=== PATIENT | female | born 1980 | race Caucasian/White ===

== ENCOUNTER 2017-08-13 11:04 | Emergency (ER) | payer BC ==
--- NOTE | 2017-08-13 11:18 | EDM.PDOC ---
ED HPI GENERAL MEDICAL PROBLEM - General Stated Complaint: LEFT SIDE OF FACE IS NUMB Time Seen by Provider: 08/13/17 11:18 Source of Information: Reports: Patient History Limitations: Reports: No Limitations - History of Present Illness INITIAL COMMENTS - FREE TEXT/NARRATIVE: Patient is a 37-year-old female who presents to the ED complaining of left- sided facial tingling. She states this started a few days ago with some faint numbness noted to the left side of her lips. Today approximately 1 hour ago symptoms progressed to her face. She has a slight headache located left side rated 4 out of 10 throbbing in nature. She does have a history of migraines in the past but is not medicated. She is concerned that she may be having a stroke since there is a strong family history of this. In addition she is feeling very anxious which she believes may be exacerbating the symptoms. She has had a history of hypertension and present to the ED with significant elevation in her blood pressure noted. She was on metoprolol 25 mg one tab every day up until 2 years ago. Over the past few years she states her stress level has been very high with work. She does not go to the doctor on regular basis. She is currently taking no medications. Surgical history noncontributory. Patient does smoke 2 cigarettes a day. Alcohol uses rarely. Denies recreational drug use. She states she is not she's not sexually active. Headache Pain Score (Numeric/FACES): 3 - Related Data Allergies Allergy/AdvReac Type Severity Reaction Status Date / Time Iodinated Contrast- Oral and Allergy Swelling Verified 08/13/17 11:12 IV Dye Home Meds: Home Meds Metoprolol Succinate [Toprol XL] 25 mg PO DAILY #30 tab.er 08/13/17 [Rx] Ranitidine [Zantac] 1 tab PO ASDIRECTED PRN 08/13/17 [History] ED ROS GENERAL - Review of Systems Review Of Systems: See Below Constitutional: Reports: Malaise, Decreased Appetite. Denies: Fever, Chills HEENT: Reports: No Symptoms Respiratory: Reports: No Symptoms Cardiovascular: Reports: No Symptoms GI/Abdominal: Reports: No Symptoms : Reports: No Symptoms Musculoskeletal: Reports: No Symptoms Skin: Reports: No Symptoms Neurological: Reports: Headache, Tingling (to left side of face where headache is located. ). Denies: Numbness Psychiatric: Reports: No Symptoms ED EXAM, NEURO - Physical Exam Exam: See Below Exam Limited By: No Limitations General Appearance: Alert, WD/WN, Anxious Eye Exam: Bilateral Eye: EOMI, Normal Inspection, PERRL Ears: Hearing Grossly Normal Nose: Normal Inspection Throat/Mouth: Normal Inspection, Normal Oropharynx, Normal Voice, No Airway Compromise Head Exam: Atraumatic, Normocephalic Neck: Normal Inspection, Supple, Non-Tender, Lymphadenopathy (L). No: Carotid Bruit Respiratory/Chest: No Respiratory Distress, Lungs Clear, Normal Breath Sounds, Chest Non-Tender Cardiovascular: Normal Peripheral Pulses, Regular Rate, Rhythm, No Murmur GI/Abdominal: Normal Bowel Sounds, Soft, Non-Tender, No Organomegaly, No Distention Neurological: Alert, Normal Mood/Affect, Normal Dorsiflexion, CN II-XII Intact, Normal Plantar Flexion, No Motor/Sensory Deficits, Oriented x 3, Other ( Cerebellar function intact: Finger-nose, rapid alternating movements. No weakness discrepancy is to the upper and lower extremities. No sensory deficits noted on examination. No slurred speech. No facial droop.) Back Exam: Normal Inspection Extremities: Normal Inspection Psychiatric: Normal Affect, Normal Mood Skin Exam: Warm, Dry, Intact, Normal Color, No Rash Course - Vital Signs Last Recorded V/S: Last Vital Signs Temp 97.2 F 08/13/17 11:13 Pulse 78 08/13/17 11:58 Resp 18 08/13/17 11:13 BP 149/120 H 08/13/17 11:58 Pulse Ox 100 08/13/17 11:13 - Orders/Labs/Meds Orders: Active Orders 24 hr Category Date Time Status EKG Documentation Completion [RC] STAT Care 08/13/17 11:35 Active Peripheral IV Care [RC] . DIRECTED Care 08/13/17 11:35 Active Peripheral IV Insertion Adult [OM.PC] Stat Oth 08/13/17 11:35 Ordered Peripheral IV Insertion Adult [OM.PC] Stat Oth 08/13/17 11:36 Ordered Labs: Laboratory Tests 08/13/17 08/13/17 08/13/17 Range/Units 11:45 11:45 11:45 WBC 7.08 (3.98-10.04) K/mm3 RBC 4.91 (3.98-5.22) M/mm3 Hgb 11.6 (11.2-15.7) gm/L Hct 36.5 (34.1-44.9) % MCV 74.3 L (79.4-94.8) fl MCH 23.6 L (25.6-32.2) pg MCHC 31.8 L (32.2-35.5) g/dl RDW Std Deviation 46.0 (36.4-46.3) fL Plt Count 426 H (182-369) K/mm3 MPV 9.2 L (9.4-12.3) fl Neut % (Auto) 60.1 (34.0-71.1) % Lymph % (Auto) 23.7 (19.3-51.7) % [place] % (Auto) 12.9 H (4.7-12.5) % Eos % (Auto) 2.3 (0.7-5.8) Baso % (Auto) 0.6 (0.1-1.2) % Neut # (Auto) 4.26 (1.56-6.13) K/mm3 Lymph # (Auto) 1.68 (1.18-3.74) K/mm3 [place] # (Auto) 0.91 H (0.24-0.36) K/mm3 Eos # (Auto) 0.16 (0.04-0.36) K/mm3 Baso # (Auto) 0.04 (0.01-0.08) K/mm3 Manual Slide Review Abnormal smear PT 10.0 (8.0-13.0) SECONDS INR 0.92 APTT 27 (22-36) SECONDS Sodium 138 (136-145) mEq/L Potassium 4.3 (3.5-5.1) mEq/L Chloride 105 (98-107) mEq/L Carbon Dioxide 24 (21-32) mEq/L Anion Gap 13.3 (5-15) BUN 11 (7-18) mg/dL Creatinine 0.8 (0.55-1.02) mg/dL Est Cr Clr Drug Dosing 86.64 mL/min Estimated GFR (MDRD) > 60 (>60) mL/min BUN/Creatinine Ratio 13.8 L (14-18) Glucose 105 (74-106) mg/dL Calcium 9.1 (8.5-10.1) mg/dL Total Bilirubin 0.3 (0.2-1.0) mg/dL AST 24 (15-37) U/L ALT 53 (14-59) U/L Alkaline Phosphatase 54 (46-116) U/L C-Reactive Protein < 0.2 (<1.0) mg/dL Total Protein 7.8 (6.4-8.2) g/dl Albumin 3.7 (3.4-5.0) g/dl Globulin 4.1 gm/dL Albumin/Globulin Ratio 0.9 L (1-2) TSH 3rd Generation 7.608 H (0.358-3.74) uIU/mL HCG, Qual (NEGATIVE) Urine Color (Yellow) Urine Appearance (Clear) Urine pH (5.0-8.0) Ur Specific [place] (1.005-1.030) Urine Protein (Negative) Urine Glucose (UA) (Negative) Urine Ketones (Negative) Urine Occult Blood (Negative) Urine Nitrite (Negative) Urine Bilirubin (Negative) Urine Urobilinogen (0.2-1.0) Ur Leukocyte Esterase (Negative) Urine RBC (0-5) /hpf Urine WBC (0-5) /hpf Ur Epithelial Cells (0-5) /hpf Urine Bacteria (FEW) /hpf Urine Mucus (FEW) /hpf 08/13/17 08/13/17 Range/Units 11:45 11:45 WBC (3.98-10.04) K/mm3 RBC (3.98-5.22) M/mm3 Hgb (11.2-15.7) gm/L Hct (34.1-44.9) % MCV (79.4-94.8) fl MCH (25.6-32.2) pg MCHC (32.2-35.5) g/dl RDW Std Deviation (36.4-46.3) fL Plt Count (182-369) K/mm3 MPV (9.4-12.3) fl Neut % (Auto) (34.0-71.1) % Lymph % (Auto) (19.3-51.7) % [place] % (Auto) (4.7-12.5) % Eos % (Auto) (0.7-5.8) Baso % (Auto) (0.1-1.2) % Neut # (Auto) (1.56-6.13) K/mm3 Lymph # (Auto) (1.18-3.74) K/mm3 [place] # (Auto) (0.24-0.36) K/mm3 Eos # (Auto) (0.04-0.36) K/mm3 Baso # (Auto) (0.01-0.08) K/mm3 Manual Slide Review PT (8.0-13.0) SECONDS INR APTT (22-36) SECONDS Sodium (136-145) mEq/L Potassium (3.5-5.1) mEq/L Chloride (98-107) mEq/L Carbon Dioxide (21-32) mEq/L Anion Gap (5-15) BUN (7-18) mg/dL Creatinine (0.55-1.02) mg/dL Est Cr Clr Drug Dosing mL/min Estimated GFR (MDRD) (>60) mL/min BUN/Creatinine Ratio (14-18) Glucose (74-106) mg/dL Calcium (8.5-10.1) mg/dL Total Bilirubin (0.2-1.0) mg/dL AST (15-37) U/L ALT (14-59) U/L Alkaline Phosphatase (46-116) U/L C-Reactive Protein (<1.0) mg/dL Total Protein (6.4-8.2) g/dl Albumin (3.4-5.0) g/dl Globulin gm/dL Albumin/Globulin Ratio (1-2) TSH 3rd Generation (0.358-3.74) uIU/mL HCG, Qual Negative (NEGATIVE) Urine Color Yellow (Yellow) Urine Appearance Clear (Clear) Urine pH 6.5 (5.0-8.0) Ur Specific [place] 1.025 (1.005-1.030) Urine Protein Negative (Negative) Urine Glucose (UA) Negative (Negative) Urine Ketones Negative (Negative) Urine Occult Blood Negative (Negative) Urine Nitrite Negative (Negative) Urine Bilirubin Negative (Negative) Urine Urobilinogen 0.2 (0.2-1.0) Ur Leukocyte Esterase Negative (Negative) Urine RBC Not seen (0-5) /hpf Urine WBC 0-5 (0-5) /hpf Ur Epithelial Cells 0-5 (0-5) /hpf Urine Bacteria Few (FEW) /hpf Urine Mucus Few (FEW) /hpf Meds: Medications Discontinued Medications Generic Name Dose Route Start Last Admin Trade Name Jero PRN Reason Stop Dose Admin Ketorolac Tromethamine 30 mg 08/13/17 11:37 08/13/17 11:52 Toradol IVPUSH 08/13/17 11:38 30 mg ONETIME ONE Administration Lorazepam 1 mg 08/13/17 11:36 08/13/17 11:51 Ativan IVPUSH 08/13/17 11:37 1 mg ONETIME ONE Administration Metoprolol Tartrate 25 mg 08/13/17 11:36 08/13/17 11:58 Lopressor PO 08/13/17 11:37 25 mg ONETIME ONE Administration Sodium Chloride 10 ml 08/13/17 11:35 08/13/17 11:51 Saline Flush FLUSH 10 ml ASDIRECTED PRN Administration Keep Vein Open - Re-Assessments/Exams Free Text/Narrative Re-Assessment/Exam: IV established with ativan 1mg IVP, toradol 30mg IVP, and Metoprolol 25mg PO. Initial labs and studies include: CBC, C14, CRP, HCG, Coag Studies, TSH, and UA. EKG and CT of the head w/o contrast obtained. EKG sinus rhythm at a rate of [address] changes. Normal ECG. 08/13/17 12:[address] did not reveal any acute abnormalities. 08/13/17 13:07 Reassessment, discussed results of labs and CT study with the patient. Patient feeling much more relaxed. Blood pressure has trended downward from initial evaluation. Still complains of some mild tingling to the left side of her face and headache is improving. Suspect cause of the tingling sensation to the face is more likely related to migraine headache. Headaches are precipitated by increased anxiety and stress. Hypertension is also a factor. At this point we will discharge patient home with instructions to follow-up with PCP to start treatment for hypothyroidism, hypertension, anxiety and depression. Will start the patient back on toprol xl 25 mg every day. She'll be instructed to purchase a blood pressure machine and monitor blood pressure daily and keeping a daily log. Departure - Departure Time of Disposition: 13:08 Disposition: Home, Self-Care 01 Condition: Good Clinical Impression: Facial tingling, Anxiety Hypertension Qualifiers: Hypertension type: unspecified Qualified Code(s): I10 - Essential (primary) hypertension Headache Qualifiers: Headache type: other headache syndrome Qualified Code(s): G44.89 - Other headache syndrome - Discharge Information Prescriptions: Metoprolol Succinate [Toprol XL] 25 mg PO DAILY #30 tab.er Instructions: Hypertension Referrals: PCP,None [Ordering Only Provider] - Forms: ED Return to Work/School Form Additional Instructions: As discussed blood pressure was quite elevated with admission to the ED. You're given metoprolol 25 mg one tab by mouth here in the ED. Blood pressure did trend downward as well as her anxiety after administration of Ativan. Suspect headache is associated with hypertension and anxiety. It is unilateral is most likely migraine in nature and also intruding to the tingling to the left side of her face. At this point will start you back on Toprol XL 25 mg one tab every day with instructions to purchase a blood pressure machine checking her blood pressure daily keeping a daily log. Follow-up with your primary care provider in the next week to 10 days being the blood pressure log and blood pressure machine with you so that the machine can be calibrated with PCPs blood pressure machine. In addition you have hypothyroidism that requires treatment. At that time he can discuss treatment for anxiety-like symptoms. Stop smoking. Refrain from caffeinated beverages and alcohol usage. No driving today since receiving a sedative medication. Return to ED if you develop any new or worsening symptoms including but not limited to: Worst headache of life, vision changes, paralysis or sensory changes to the upper or lower extremities, facial droop, and or slurred speech. - My Orders Last 24 Hours: My Active Orders 08/13/17 11:35 EKG Documentation Completion [RC] STAT Peripheral IV Care [RC] . DIRECTED Peripheral IV Insertion Adult [OM.PC] Stat 08/13/17 11:36 Peripheral IV Insertion Adult [OM.PC] Stat - Assessment/Plan Last 24 Hours: My Active Orders 08/13/17 11:35 EKG Documentation Completion [RC] STAT Peripheral IV Care [RC] . DIRECTED Peripheral IV Insertion Adult [OM.PC] Stat 08/13/17 11:36 Peripheral IV Insertion Adult [OM.PC] Stat
[2017-08-13] MEDS ORDERED: Sodium Chloride 0.9% 10 ML Syringe FLUSH PRN (11:35)
[2017-08-13] MEDS ORDERED: Metoprolol Tartrate 25 MG Tab PO ONE (11:36)
[2017-08-13] MEDS ORDERED: LORazepam 2 MG/ML MDV IVPUSH ONE (11:36)
[2017-08-13] MEDS ORDERED: Ketorolac 30 MG/ML SDV IVPUSH ONE (11:37)
--- NOTE | 2017-08-13 12:20 | CT ---
Head CT Technique: Multiple axial sections through the brain were obtained. Intravenous contrast was not utilized. Comparison: No previous intracranial imaging. Findings: Ventricles along the basal cisterns and sulci over convexities are within normal limits for the patient's age. No abnormal parenchymal densities are seen. No evidence of intracranial hemorrhage. No midline shift or mass effect is seen. Bone window settings were reviewed which shows no acute calvarial abnormality. Visualized sinuses are clear. Impression: 1. No abnormality is identified on noncontrast head CT exam. Diagnostic code #1
== END 2017-08-13 14:00 | disposition home or self-care (01) ==
LOC: JD.ED 11:04
DX: G44.89 Other headache syndrome (principal); F41.9 Anxiety disorder, unspecified; R20.2 Paresthesia of skin; I10 Essential (primary) hypertension; F17.210 Nicotine dependence, cigarettes, uncomplicated; Z79.899 Other long term (current) drug therapy; Z91.041 Radiographic dye allergy status
CPT/HCPCS: 36415; 70450; 80053; 81001; 84443; 84703; 85025; 85610; 85730; 86140; 93005; 96374; 96375; 99285; A9270; J1885; J2060; J7050; 93010; 99284

== ENCOUNTER 2018-12-11 14:08 | Emergency (ER) | payer SELFPAY ==
[2018-12-11] MEDS ORDERED: Acetaminophen/HYDROcodone 325-5 MG Tab PO ONE (14:23)
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
--- NOTE | 2018-12-12 17:56 | CR ---
Chest and bilateral ribs: Frontal view of the chest was obtained as well as an additional six views of both ribs. Displaced fractures are seen within the right seventh, eighth and ninth ribs. Nondisplaced fracture is felt to be present within the 10th rib. No left-sided rib fracture is appreciated. No pneumothorax is seen. Heart size and mediastinum are normal. No acute parenchymal change is seen. Impression: 1. Four right-sided rib fractures as noted above. 2. No pneumothorax is seen. Diagnostic code #3
== END 2018-12-11 16:00 | disposition home or self-care (01) ==
LOC: JD.ED 14:08
DX: S22.41XA Multiple fractures of ribs, right side, initial encounter for closed fracture (principal); S20.221A Contusion of right back wall of thorax, initial encounter; I10 Essential (primary) hypertension; F17.210 Nicotine dependence, cigarettes, uncomplicated; W19.XXXA Unspecified fall, initial encounter; Z91.041 Radiographic dye allergy status
CPT/HCPCS: 71101; 99283; A9270; 99284

== ENCOUNTER 2018-12-14 05:12 | Inpatient (IN) | payer SELFPAY ==
[2018-12-14] MEDS ORDERED: Ondansetron 4 MG/2 ML SDV IVPUSH ONE (05:35)
[2018-12-14] MEDS ORDERED: Sodium Chloride 0.9% 10 ML Syringe FLUSH PRN ×2 (05:35→07:16)
[2018-12-14] MEDS ORDERED: HYDROmorphone 0.5 MG/0.5 ML Syringe IVPUSH ONE (05:35)
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
[2018-12-14] MEDS ORDERED: Sodium Chloride 0.9% 1,000 ML IV SCH (07:30)
[2018-12-14] MEDS: HYDROmorphone 0.5 MG/0.5 ML Syringe IVPUSH PRN ×2 (08:09→09:57)
[2018-12-14] MEDS ORDERED: Ondansetron 4 MG/2 ML SDV IVPUSH PRN (08:25)
--- NOTE | 2018-12-14 08:27 | CR ---
Chest: Portable view of the chest is obtained. Comparison: Prior chest x-ray of 12/14/18. Right hemidiaphragm is elevated. This is felt compatible with pleural effusion tracking up the lateral chest wall. Atelectasis is noted within the right lung. Lesser atelectasis is noted within the left lung. Bony structures are grossly intact. Heart size appears within normal limits. Multiple right-sided rib fractures are seen. No pneumothorax is seen. Impression: 1. Right-sided pleural effusion. 2. Right-sided rib fractures. 3. No pneumothorax is seen. Diagnostic code #3 I agree with preliminary report from [facility], finalized on 12/14/18, 8:05 AM Central Time
[2018-12-14] MEDS ORDERED: Promethazine 12.5 MG in Sodium Chloride 0.9% 50 ML IV PRN (09:13)
--- NOTE | 2018-12-14 10:06 | CR ---
Chest: Frontal view of the chest is obtained (5:46 AM). Comparison: Previous chest x-ray of 12/11/18. Elevated right hemidiaphragm is seen with thickening along the right lateral chest wall which is felt compatible with pleural effusion which represents an interval change from previous exam. Multiple right-sided rib fractures again seen. Left lung is clear. No pneumothorax is appreciated. Heart size is within normal limits. Impression: 1. Right sided pleural effusion. Stable rib fractures. No pneumothorax is noted. Diagnostic code #3
--- NOTE | 2018-12-14 11:14 | CT ---
Chest CT Technique: Multiple axial sections were obtained from above the lung apices inferiorly through the lung bases. Intravenous contrast was not utilized. Comparison: Prior chest x-ray performed earlier on the same day (6:00 a.m.). Findings: Soft tissue contusion is seen within the right lateral abdomen. Right sided pleural effusion is seen which is moderate in amount. This shows some increased density and is felt to be hemorrhagic. Vague adjacent parenchymal density is seen presumably due to compressive atelectasis. Difficult to exclude poorly seen lung contusion. Left lung is clear. Slightly displaced fracture in seen within the posterolateral 10th rib. 9th rib shows fracture in 2 places one being posterior and one being laterally which appear displaced. Displaced fracture is seen within the lateral right 9th rib as well as nondisplaced fracture within the posterior right ninth rib. No additional rib fracture is seen. Impression: 1. Fractures within the right 8th through 10th ribs as described above. 2. Moderately large pleural effusion on the right side which appears to be hemorrhagic. Poorly seen parenchymal density is seen on the right side most likely due to compressive atelectasis. Difficult to exclude poorly seen lung contusion. 3. Left lung is clear. 4. No pneumothorax is seen. Diagnostic code #3
[2018-12-14] MEDS ORDERED: Bupivacaine 0.5%/EPINEPHrine 1:200,000 50 ML MDV ONE (12:08)
[2018-12-14] MEDS ORDERED: fentaNYL 100 MCG/2 ML SDV ONE ×2 (12:09→12:42)
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
[2018-12-14] MEDS ORDERED: Midazolam 1 MG/ML 2 ML SDV ONE (12:10)
[2018-12-14] MEDS ORDERED: Propofol 200 MG/20 ML SDV ONE (12:20)
[2018-12-14] MEDS ORDERED: HYDROmorphone 1 MG/ML Syringe ONE (12:42)
[2018-12-14] MEDS ORDERED: HYDROmorphone 0.5 MG/0.5 ML Syringe IVPUSH PRN (13:16)
--- NOTE | 2018-12-14 13:19 | PCM.POSTAN ---
POST ANESTHESIA ASSESSMENT - MENTAL STATUS Mental Status: Alert, Oriented - VITAL SIGNS Pulse Rate: 128 SaO2: 100 Resp Rate: 26 Blood Pressure: 138/123 Temperature: 37.3 C - RESPIRATORY Respiratory Status: Airway Patent, O2 Saturation Stable, Supplemental Oxygen, Elevated Respiratory Rate - CARDIOVASCULAR CV Status: Elevated Blood Pressure - GASTROINTESTINAL GI Status: No Symptoms - PAIN Pain Score: 5 - POST OP HYDRATION Hydration Status: Adequate & Stable - OBSERVATIONS Free Text/Narrative:: no anesthesia complications noted
[2018-12-14] MEDS ORDERED: Metoprolol Tartrate 5 MG/5 ML SDV ONE (13:26)
[2018-12-14] MEDS: fentaNYL 100 MCG/2 ML SDV IVPUSH PRN ×2 (13:31→14:19)
--- NOTE | 2018-12-14 14:16 | CR ---
Chest: Portable view of the chest was obtained. Comparison: Previous chest CT performed earlier on same day (10:30 AM) Right-sided chest tube is seen. Chest tube descends inferiorly. Pleural effusion remains on the right side with continued parenchymal density. Left lung is clear. Right-sided rib fractures are noted. Impression: 1. Right-sided chest tube with chest tube descending inferiorly. 2. Right-sided pleural effusion remains with continued parenchymal density within the right chest. Diagnostic code #3
--- NOTE | 2018-12-14 15:52 | HP ---
DATE OF ADMISSION: 12/14/2018 ADMITTING DIAGNOSIS: Multiple rib fractures, pleural effusions status post fall. HISTORY OF PRESENT ILLNESS: The patient is a 38-year-old female, who was on her back porch with her dog on Thursday. She became tangled in the dog's leash and toppled over backwards falling approximately 8 feet. She landed hard on her right posterior chest. She had no loss of consciousness. The patient presented to the ED with chest pain. She had a workup including a chest x-ray, which demonstrated 4 fractured ribs, 7 through 10. She actually did quite well just with some hydrocodone. The patient was discharged from the ED at the time of her fall. This morning, she said something happened and she had a sudden increase in her chest pain associated with increasing shortness of breath. This awakened her from sleep this morning. She re-presented to the ED for pain control. She required some Dilaudid and oxygen. She had a bit of a low saturation, so she was started on nasal cannula oxygen and was brought back up to 100%. As a precaution, I recommended admission. PAST MEDICAL HISTORY: Hypothyroidism and gastroesophageal reflux disease. ALLERGIES TO MEDICATIONS: Iodinated contrast, both oral and IV. CURRENT MEDICATIONS: Ranitidine 150 mg p.o. daily p.r.n., levothyroxine 75 mcg p.o. daily, Toprol-XL 50 mg p.o. daily. PAST SURGICAL HISTORY: None. REVIEW OF SYSTEMS: Aside from that listed above, her review of systems is completely negative. SOCIAL HISTORY: She denies alcohol abuse. Denies illicit drugs. She has smoked about a 3rd of a pack of cigarettes daily for the last 6 years. PHYSICAL EXAMINATION: GENERAL: She is alert. She is in painful distress, taking shallow respirations. VITAL SIGNS: Temperature 96.1, pulse 96, respirations 24, blood pressure 123/71. HEAD AND NECK: Normocephalic, atraumatic. She is anicteric. Neck is supple. Full range of motion. LUNGS: She has diminished breath sounds on the right lung field with crackles at the bases. She has a poor inspiratory effort, currently on oxygen, saturating 96% on 2 L nasal cannula. MUSCULOSKELETAL: Posterior ribs are quite tender on the right. No contusion. No bony deformities present. Cervical and thoracic spine are unremarkable. ABDOMEN: Soft, nontender, nondistended. EXTREMITIES: No clubbing or cyanosis. No edema. No bony deformities. 2+ distal pulses present in all 4 extremities. NEUROLOGIC: Cranial nerves are grossly intact, nonfocal. PSYCHIATRIC: She has appropriate affect and demeanor. LABORATORY DATA: Labs showed leukocytosis of 12,700, hemoglobin 9.8 that is down from her previous admission. She has a left shift. Platelets are 464. Chemistry; sodium 134, glucose 136, ALT 62, albumin/globulin ratio 0.9. The remainder of her chemistries are unremarkable. I looked at her chest x-ray. She has a large pleural effusion on the right. There may be some pleural effusion on the left as well. I note displaced rib fractures #7, #8, #9 with a nondisplaced fracture at #10 posteriorly. The right hemidiaphragm appears elevated. ASSESSMENT: 1. Multiple posterior rib fractures, status post fall. 2. Pleural effusion. PLAN: She will need a CT scan. I just want to rule out a large pulmonary contusion. I will not be surprised if she ends up with a thoracentesis because she currently has a symptomatic effusion. If she has a large pulmonary contusion, I might suggest we send her to [place] for higher level of care as these patients sometimes require intubation. I will try to get her pain controlled. If draining her pleural effusion settles her clinical condition, rib fractures may be treated with an epidural catheter. I will await the results of the CT for further medical decision making. ELENA /[id number]
--- NOTE | 2018-12-14 20:10 | OR ---
DATE OF OPERATION: 12/14/2018 SURGEON: Amado Gao MD PREOPERATIVE DIAGNOSIS: 1. Pulmonary contusion. 2. Pleural effusion. 3. Hemothorax, all on the right. 4. Multiple rib fractures, status post trauma. POSTOPERATIVE DIAGNOSIS: 1. Pulmonary contusion. 2. Pleural effusion. 3. Hemothorax, all on the right. 4. Multiple rib fractures, status post trauma. OPERATION PERFORMED: Right thoracostomy tube placement. ANESTHESIA: Procedural sedation. ESTIMATED BLOOD LOSS: Minimal. FINDINGS: She had approximately 600 mL of dark blood which was emanated both through the thoracostomy incision and prior to placement of the chest tube and then through the chest tube itself as well as leaking around the tube once it was placed. Postop chest x-ray demonstrated some improvement of her x-ray, but not complete resolution. COMPLICATIONS: None. DISPOSITION: Stable at the end of the case. INDICATIONS: The patient is a 38-year-old female who fell off the back of her porch, landing hard 8 feet down onto a railroad tie. She fractured 4 ribs, 3 displaced, 1 nondisplaced. These were ribs 7 through 10, ten is a nondisplaced rib. She was seen on Thursday in the ED and discharged with good pain control. She returned this morning in extremis with hypoxia. She was placed on oxygen. Repeat chest x-ray showed whiteout of the right tamiko-lung field. CT scan showed previous rib fractures with what appeared to be a hemothorax in the right chest. Her lungs appeared contused as well. The patient was offered a thoracostomy tube. She is quite anxious about the idea of having any procedure at the bedside. It was clear she would have to have anesthesia if she is to tolerate the procedure. I involved her anesthesia team. We brought her into the operating room, and she gave informed consent to have the procedure under conscious sedation versus MAC. She was fully informed of the major risks, benefits, and alternatives. These include, but are not limited to, recurrent surgery and bleeding, possibility of second chest tube, transferred to higher level of care, nonresolution, and many other. She gave informed consent to what was done. DESCRIPTION OF PROCEDURE: The patient was brought to the operating room, and she was positioned in the semi-recumbent position. She was given monitored anesthesia. The right chest was prepped and draped in usual sterile fashion with chlorhexidine, identified the 4th to 5th interspace just lateral and inferior to the right breast. The skin was infused with 0.5% Marcaine with epinephrine and 11 blade was used to cut down onto the chest wall. The intercostal muscles in the interspace were open with a Frances clamp and a 28-Lithuanian thoracostomy tube was inserted in a transverse direction and had some resistance, so rotated tube until I got a rapid alberto of blood both around the tube and through the tube itself. Tube was clamped and then connected to the Pleur-Evac. The Pleur-Evac was then connected to suction. I then suture secured the tube in 2 locations with 0 Ethibond suture, securing it completely. I then dressed the opening with petroleum gauze, covered with 4 x 4, and then secured with copious silk tape. The mesentery was created to prevent retraction and then the tube was taped to the Pleur-Evac tubing as well. The patient tolerated the procedure well. She had no complications. Postop portable chest x-ray did not demonstrate complete resolution of the hemothorax. ELENA /[id number]
--- NOTE | 2018-12-15 04:10 | DISCH ---
ADMISSION DATE: 12/14/2018 DISCHARGE DATE: 12/14/2018 ADMITTING DIAGNOSES: Blunt trauma to the chest, 4 posterior rib fractures, pulmonary contusion, pleural effusion, and hemothorax. DISCHARGE DIAGNOSES: Blunt trauma to the chest, 4 posterior rib fractures, pulmonary contusion, pleural effusion, and hemothorax. HOSPITAL COURSE: Nova was admitted 3 days after a fall off her back porch. She sustained a rib fracture. She was seen on Thursday and was discharged with pain control. She returned in extremis this morning, hypoxic. She was placed on oxygen and x-ray showed a pleural effusion. CT scan was ordered. This demonstrated a hemothorax as well as a previous displaced rib fractures, 7, 8 and 9 and nondisplaced rib fracture #10 posteriorly on the right. She was arranged for a thoracostomy tube. The thoracostomy tube was placed. This was a 28-[place] tube. She had a non-complete resolution of her hemothorax. Her notable contusion does raise concern that she probably does not belong in a critical access hospital. Her chances of respiratory decline are significant so the option to transfer was undertaken. I spoke with Dr. Best at [facility] in [place] and he accepted her current transfer and she will be transferred by ambulance. I offered Nova transfer to [place] and she agreed prior to the procedure in the likely event that we had non-complete resolution of her hemothorax. She gave consent to transfer with the understanding that she may deteriorate en route, I kept her family fully informed during the entirety of the process. She will be transferred as soon as the ambulance is available. For the meantime, she is being maintained on ACLS protocol here in the PACU, awaiting arrival of the ambulance. FINAL DIAGNOSIS: DISCHARGE MEDICATIONS: DIET: ACTIVITY: FOLLOW-UP: CONDITION ON DISCHARGE: MMODAL /[id number]
== END 2018-12-14 14:54 | DRG 200 ==
LOC: JD.ED 05:12 → INTOOBSV 06:44 → JD.MS 06:44 → OBSVTOIN 12:12 → JD.MS 12:13
PROVIDERS: ADMIT Surgery; ATTEND Surgery
PROC: 0W9930Z Drainage of Right Pleural Cavity with Drainage Device, Percutaneous Approach (ICD-10-PCS; principal; 2018-12-14)
DX: S27.1XXA Traumatic hemothorax, initial encounter (principal); S22.41XA Multiple fractures of ribs, right side, initial encounter for closed fracture; J90 Pleural effusion, not elsewhere classified; S27.321A Contusion of lung, unilateral, initial encounter; W17.89XA Other fall from one level to another, initial encounter; R09.02 Hypoxemia; E03.9 Hypothyroidism, unspecified; K21.9 Gastro-esophageal reflux disease without esophagitis; F17.210 Nicotine dependence, cigarettes, uncomplicated; H54.7 Unspecified visual loss; I10 Essential (primary) hypertension; F41.9 Anxiety disorder, unspecified; Z79.899 Other long term (current) drug therapy; Z79.890 Hormone replacement therapy; Z91.041 Radiographic dye allergy status
CPT/HCPCS: 36415; 71045; 71045-26; 71250; 71250-26; 80053; 85025; 96374; 96375; 99285-25; J1170; J2250; J2405; J2550; J2704; J3010; J3490; J7040; J7050

== ENCOUNTER 2024-11-18 16:53 | Day surgery (SDC) | payer BC ==
[2024-11-18 17:46] LABS: APPEARANCE,URINE CLEAR (Clear); BILIRUBIN,URINE NEGATIVE (Negative); COLOR,URINE YELLOW (Yellow); GLUCOSE,URINE NEGATIVE (Negative); KETONES,URINE TRACE (Negative); LEUKOCYTE ESTERASE,URINE NEGATIVE (Negative); NITRITE,URINE NEGATIVE (Negative); OCCULT BLOOD,URINE 3+ (Negative); PH,URINE 6.5 (5.0-8.0); PROTEIN,URINE 1+ (Negative); UROBILINOGEN,URINE 0.2 (0.2-1.0)
[2024-11-18 17:56] LABS: BACTERIA,URINE MODERATE /hpf (FEW); MUCUS,URINE MANY /hpf (FEW); RBC,URINE 50-75 /hpf (0-5); SQUAMOUS EPITHELIAL CELLS,UR 0-5 /hpf (0-5); WBC,URINE 0-5 /hpf (0-5)
[2024-11-18 18:07] LABS: BASOPHILS ABSOLUTE AUTO 0.1 K/mm3 (0.0-0.2); BASOPHILS PERCENT AUTO 0.5 % (0.0-1.0); EOSINOPHILS ABSOLUTE AUTO 0.2 K/mm3 (0.0-0.4); EOSINOPHILS PERCENT AUTO 1.8 % (0.0-6.0); HEMATOCRIT 39.1 % (37.0-47.0); IMMATURE GRAN ABSOLUTE AUTO 0.06 K/mm3 (0.00-0.05); IMMATURE GRAN PERCENT AUTO 0.5 % (0.0-0.4); LYMPHOCYTES ABSOLUTE AUTO 1.6 K/mm3 (1.0-4.8); LYMPHOCYTES PERCENT AUTO 12.6 % (24.0-44.0); MEAN CORPUSCULAR HEMOGLOBIN 23.2 pg (28.0-32.0); MEAN CORPUSCULAR HGB CONC 30.7 g/dl (32.0-36.0); MEAN CORPUSCULAR VOLUME 75.5 fl (83.0-99.0); MONOCYTES PERCENT AUTO 7.9 % (0.0-8.0); NEUTROPHILS ABSOLUTE AUTO 9.6 K/mm3 (1.8-7.7); NEUTROPHILS PERCENT AUTO 76.7 % (41.0-71.0); PLATELET COUNT,PLT 403 K/mm3 (150-400); RED BLOOD CELL COUNT 5.18 M/mm3 (4.10-5.30)
[2024-11-18] MEDS: Sodium Chloride 0.9% 10 ML Syringe FLUSH PRN (18:12)
[2024-11-18] MEDS: Ketorolac 15 MG/ML SDV IVPUSH ONE (18:14)
[2024-11-18] MEDS: Sodium Chloride 0.9% 1,000 ML IV ONE ×2 (18:16→20:28)
[2024-11-18 18:29] LABS: ALBUMIN 3.7 g/dl (3.4-5.0); ANION GAP 13.4 (5-15); BILIRUBIN TOTAL 0.4 mg/dL (0.2-1.0); BUN/CREATININE RATIO 12.2 (14-18); CALCIUM 8.9 mg/dL (8.5-10.1); CREATININE 0.9 mg/dL (0.55-1.02); EST CRCL DRUG DOSING (CG) 71.78 mL/min; POTASSIUM,K 4.4 mEq/L (3.5-5.1); PROTEIN TOTAL,TP 7.6 g/dl (6.4-8.2)
[2024-11-18] MEDS: hydrALAZINE 20 MG/ML SDV IVPUSH PRN (19:12)
[2024-11-18] MEDS ORDERED: Naloxone 0.4 MG/ML SDV IVPUSH PRN ×2 (20:16→21:58)
[2024-11-18] MEDS: HYDROmorphone 0.5 MG/0.5 ML Syringe IVPUSH ONE ×2 (20:20→22:04)
[2024-11-18] MEDS: Ondansetron 4 MG/2 ML SDV IVPUSH ONE (20:20)
[2024-11-18] MEDS: diphenhydrAMINE 50 MG/ML SDV IVPUSH ONE (20:24)
[2024-11-18] MEDS ORDERED: Sodium Chloride 0.9% 10 ML Syringe FLUSH PRN (20:31)
[2024-11-18] MEDS ORDERED: Sodium Chloride 0.9% 250 ML IV SCH (21:00)
[2024-11-18] MEDS: Iopamidol 612 MG/ML 30 ML SDV IV ONE (21:02)
[2024-11-18] MEDS: Iopamidol 612 MG/ML 100 ML Bottle IVPUSH ONE (21:02)
[2024-11-18] MEDS: Sodium Chloride 0.9% 1,000 ML IV SCH (21:55)
[2024-11-18] MEDS ORDERED: fentaNYL 100 MCG/2 ML SDV ONE (22:49)
[2024-11-18] MEDS ORDERED: propofoL 500 MG/50 ML 50 ML ONE (22:49)
[2024-11-18] MEDS ORDERED: Midazolam 1 MG/ML 2 ML SDV ONE (22:49)
[2024-11-18] MEDS ORDERED: Lidocaine 1% 5 ML VIAL ONE (22:56)
[2024-11-18] MEDS ORDERED: dexmedeTOMIDine HCl 200 MCG/2 ML SDV ONE (22:56)
[2024-11-18] MEDS ORDERED: Sugammadex Sodium 200 MG/2 ML VIAL IV ONE (22:56)
[2024-11-18] MEDS ORDERED: Esmolol 100 MG/10 ML SDV ONE (22:56)
[2024-11-18] MEDS ORDERED: Rocuronium 50 MG/5 ML Vial ONE (22:56)
[2024-11-18] MEDS ORDERED: Sodium Chloride 0.9% 100 ML ONE (22:56)
[2024-11-18] MEDS ORDERED: Ketorolac 30 MG/ML SDV ONE (22:56)
[2024-11-18] MEDS ORDERED: Dexamethasone 4 MG/ML 5 ML MDV ONE (22:56)
[2024-11-18] MEDS ORDERED: Glycopyrrolate 0.2 MG/ML 2 ML SDV ONE (22:57)
[2024-11-18] MEDS ORDERED: Lactated Ringers 1,000 ML ONE (23:46)
[2024-11-18] MEDS ORDERED: Metoprolol Tartrate 5 MG/5 ML SDV ONE (23:46)
[2024-11-18] MEDS ORDERED: ceFAZolin 1 GM Vial IM ONE (23:55)
[2024-11-18] MEDS ORDERED: Propofol 200 MG/20 ML SDV ONE (23:59)
[2024-11-19] MEDS ORDERED: HYDROmorphone 0.5 MG/0.5 ML Syringe ONE ×2 (00:04→01:03)
[2024-11-19] MEDS ORDERED: ceFAZolin 1 GM Vial IVPUSH ONE (00:20)
[2024-11-19] MEDS ORDERED: HYDROmorphone 0.5 MG/0.5 ML Syringe IVPUSH PRN ×2 (00:22→04:54)
[2024-11-19] MEDS ORDERED: Sodium Chloride 0.9% 10 ML Syringe FLUSH PRN (00:22)
[2024-11-19] MEDS ORDERED: Ondansetron 4 MG/2 ML SDV IVPUSH PRN (00:22)
[2024-11-19] MEDS ORDERED: Lactated Ringers 1,000 ML IV SCH (00:30)
[2024-11-19] MEDS ORDERED: Propofol 200 MG/20 ML SDV ONE ×3 (00:33)
[2024-11-19] MEDS ORDERED: Rocuronium 50 MG/5 ML Vial ONE (00:36)
[2024-11-19] MEDS ORDERED: Labetalol 100 MG/20 ML MDV ONE (00:51)
[2024-11-19] MEDS ORDERED: fentaNYL 100 MCG/2 ML SDV ONE (01:56)
[2024-11-19] MEDS ORDERED: propofoL 1,000 MG/100 ML 100 ML ONE (02:02)
[2024-11-19] MEDS: Bupivacaine 0.5% 30 ML SDV ONE (02:50)
[2024-11-19] MEDS: EPINEPHrine 1 MG/ML SDV ONE (02:50)
[2024-11-19] MEDS: fentaNYL 100 MCG/2 ML SDV IVPUSH PRN (04:06)
[2024-11-19] MEDS ORDERED: Acetaminophen/oxyCODONE 325-5 MG Tab PO PRN (04:54)
[2024-11-19] MEDS: Acetaminophen/HYDROcodone 325-5 MG Tab PO PRN (05:17)
[2024-11-19] MEDS ORDERED: Ketorolac 15 MG/ML SDV IVPUSH SCH (06:00)
[2024-11-19] MEDS ORDERED: Sodium Chloride 0.9% 10 ML Syringe FLUSH SCH (09:00)
[2024-11-19] MEDS: Ketorolac 15 MG/ML SDV IVPUSH SCH (09:41)
[2024-11-24] MEDS ORDERED: Ibuprofen 600 MG Tab PO PRN (12:00)
== END 2024-11-19 10:15 | disposition home or self-care (01) ==
LOC: JD.ED 16:53 → JD.SDS 23:55
PROVIDERS: ATTEND Obstetrics & Gynecology
DX: N80.101 Endometriosis of right ovary, unspecified depth (principal); N80.201 Endometriosis of right fallopian tube, unspecified depth; D27.0 Benign neoplasm of right ovary
CPT/HCPCS: 00840; 36415; 74176; 74176-26; 74177; 74177-26; 76830; 76830-26; 80053; 81001; 84703; 85025; 86850; 86900; 86901; 99140; 99285; A9270-GY; J0171; J0360; J0665; J1100; J1200; J1596; J1805; J1885; J1920; J2003; J2250; J2405; J2704; J3010; J3490; J7030; J7120; Q9967